=== PATIENT | male | born 1960 | race African-American/Black ===

== ENCOUNTER 2019-10-01 23:01 | Inpatient (IN) ==
[2019-10-01] MEDS ORDERED: ACETAMINOPHEN 500 MG TABLET PO STA (23:21)
[2019-10-01 23:44] LABS: Albumin 3.5 G/DL (3.4-5.0); Bilirubin,Total 0.8 MG/DL (0.2-1.0); Calcium 9.1 MG/DL (8.5-10.1); Osmolality,Calculated 277.2 MOS/KG (273-304); Total Protein 8.8 G/DL (6.4-8.3)
[2019-10-01 23:45] LABS: Basophils % 0.3 % (0.0-0.8); Eosinophils # 0.1 10*3/uL (0.0-0.87); Eosinophils % 0.6 % (0.00-10.9); Hemoglobin 12.9 GM/DL (14.0-18.0); Immature Granulocytes % 0.4 %; Immature Granulocytes Absolute 0.05 #; Lymphocytes # 0.9 10*3/uL (1.4-4.0); Lymphocytes % 8.1 % (21.2-54.2); Mean Corpuscular HGB Conc 32.3 GM/DL (32-36); Mean Corpuscular Volume 86.8 FL (87-102); Mean Platelet Volume 9.9 FL (9.6-12.0); Monocytes % 6.7 % (1.7-12.7); Neutrophils % 83.9 % (38.7-73.9); Platelet Count 245 T/CUMM (130-400); Red Blood Count 4.61 MC/CUMM (3.8-5.5); Red Cell Distribution Width 13.8 % (9.3-17.3); White Blood Count 11.6 T/CUMM (4-12)
[2019-10-01 23:53] LABS: Ferritin 642.2 ng/ml (26-388)
[2019-10-01 23:53] LABS: Apearance,Urine CLEAR (Clear); Bilirubin,Urine Negative (Negative); Blood, Urine Negative (Negative); Glucose,Urine (UA) Negative (Negative); Hyaline Casts,Urine 7 /LPF (0-3); Ketones,Urine Negative (Negative); Mucus,Urine Occasional /LPF (Occasional); Nitrite,Urine Negative (Negative); Protein,Urine Negative; RBC,Urine 1 /HPF (0-4); Sperm,Urine Occasional /HPF (Negative); Squamous Epithelial Cell,Urine Occasional /HPF (0-10); Urine Color Straw (Yellow); Urine Specific Gravity 1.008 (1.001-1.035); Urine Urobilinogen < 2.0 EU/DL (0.2-1.0); WBC,Urine 1 /HPF (0-6)
[2019-10-02] MEDS ORDERED: SODIUM CHLORIDE 0.9% 1,000 ML IV STA ×2 (00:28→02:56)
[2019-10-02] MEDS ORDERED: AZITHROMYCIN INJ 500 MG in SODIUM CHLORIDE 0.9% 250 ML IV STA (00:35)
[2019-10-02] MEDS ORDERED: GLUCAGON 1 MG VIAL IM PRN (02:33)
[2019-10-02] MEDS ORDERED: DEXTROSE 10% 250 ML BAG IV PRN (02:33)
[2019-10-02] MEDS ORDERED: ACETAMINOPHEN 325 MG TABLET PO PRN (02:33)
[2019-10-02] MEDS ORDERED: ONDANSETRON 4 MG/2 ML VIAL IV PRN (02:33)
[2019-10-02] MEDS: cefTRIAXone 1,000 MG in SYRINGE 1 EACH IV SCH (04:04)
[2019-10-02] MEDS: SODIUM CHLORIDE 0.9% 1,000 ML IV SCH ×4 (04:04→22:35)
[2019-10-02] MEDS: PANTOPRAZOLE 40 MG TABLET PO SCH (08:13)
[2019-10-02] MEDS: POTASSIUM CHLORIDE 20 MEQ TABLET PO PRN ×3 (08:13→18:40)
[2019-10-02] MEDS: AZITHROMYCIN 250 MG TABLET PO SCH (08:15)
[2019-10-02 11:50] LABS: Basophils % 0.4 % (0.0-0.8); Eosinophils # 0.2 10*3/uL (0.0-0.87); Eosinophils % 2.3 % (0.00-10.9); Hematocrit 33.3 VOL% (42.0-52.0); Hemoglobin 11.1 GM/DL (14.0-18.0); Immature Granulocytes % 0.3 %; Immature Granulocytes Absolute 0.02 #; Lymphocytes # 0.9 10*3/uL (1.4-4.0); Lymphocytes % 12.4 % (21.2-54.2); Mean Corpuscular HGB Conc 33.3 GM/DL (32-36); Mean Platelet Volume 9.5 FL (9.6-12.0); Monocytes % 10.8 % (1.7-12.7); Neutrophils % 73.8 % (38.7-73.9); Platelet Count 206 T/CUMM (130-400); Red Blood Count 3.87 MC/CUMM (3.8-5.5); White Blood Count 7.5 T/CUMM (4-12)
[2019-10-02 12:09] LABS: Ferritin 543.6 ng/ml (26-388)
[2019-10-02 12:10] LABS: Albumin 2.7 G/DL (3.4-5.0); Bilirubin,Total 1.2 MG/DL (0.2-1.0); Osmolality,Calculated 279.8 MOS/KG (273-304); Total Protein 7.1 G/DL (6.4-8.3)
[2019-10-02] MEDS: ATORVASTATIN 10 MG TABLET PO SCH (20:49)
[2019-10-02] MEDS: APIXABAN 5 MG TABLET PO SCH (20:49)
[2019-10-02] MEDS: FUROSEMIDE 40 MG TABLET PO SCH (20:49)
[2019-10-02] MEDS: lisinopriL 20 MG TABLET PO SCH (20:49)
[2019-10-03] MEDS ORDERED: AZITHROMYCIN INJ 500 MG in SODIUM CHLORIDE 0.9% 250 ML IV SCH (01:00)
[2019-10-03] MEDS: cefTRIAXone 1,000 MG in SYRINGE 1 EACH IV SCH (02:20)
[2019-10-03] MEDS: APIXABAN 5 MG TABLET PO SCH ×2 (08:07→20:14)
[2019-10-03] MEDS: AZITHROMYCIN 250 MG TABLET PO SCH (08:07)
[2019-10-03] MEDS: PANTOPRAZOLE 40 MG TABLET PO SCH (08:08)
[2019-10-03] MEDS: SODIUM CHLORIDE 0.9% 1,000 ML IV SCH ×2 (08:08→20:13)
[2019-10-03] MEDS: lisinopriL 20 MG TABLET PO SCH (20:14)
[2019-10-03] MEDS: FUROSEMIDE 40 MG TABLET PO SCH (20:14)
[2019-10-03] MEDS: ATORVASTATIN 10 MG TABLET PO SCH (20:14)
[2019-10-04] MEDS: cefTRIAXone 1,000 MG in SYRINGE 1 EACH IV SCH (04:41)
[2019-10-04] MEDS: SODIUM CHLORIDE 0.9% 1,000 ML IV SCH (04:59)
[2019-10-04] MEDS: APIXABAN 5 MG TABLET PO SCH (08:30)
[2019-10-04] MEDS: POTASSIUM CHLORIDE 20 MEQ TABLET PO PRN (08:30)
[2019-10-04] MEDS: PANTOPRAZOLE 40 MG TABLET PO SCH (08:30)
[2019-10-04] MEDS: AZITHROMYCIN 250 MG TABLET PO SCH (08:30)
[2019-10-04 10:49] LABS: Calcium 8.6 MG/DL (8.5-10.1); Osmolality,Calculated 281.7 MOS/KG (273-304)
[2019-10-04 11:43] VITALS: BP 115/67
== END 2019-10-04 14:00 | disposition home health service (06) | DRG 194 ==
LOC: N.ED 23:01 → N.EDINP 10-02 02:33 → N.2E 10-02 03:41
PROVIDERS: ADMIT Internal Medicine; ATTEND Internal Medicine

== ENCOUNTER 2020-06-15 06:20 | Inpatient (IN) ==
[2020-06-15] MEDS ORDERED: SIMETHICONE CHEW 125 MG TABLET PO PRN (09:31)
[2020-06-15] MEDS ORDERED: DOCUSATE SODIUM 100 MG CAPSULE PO PRN (09:31)
[2020-06-15] MEDS ORDERED: hydrALAZINE 20 MG/1 ML VIAL IV PRN (09:31)
[2020-06-15] MEDS ORDERED: DEXTROSE 50% 25 GM/50 ML VIAL IV PRN (09:31)
[2020-06-15] MEDS ORDERED: MORPHINE 4 MG/1 ML VIAL IV PRN (09:31)
[2020-06-15] MEDS ORDERED: ONDANSETRON 4 MG/2 ML VIAL IV PRN (09:31)
[2020-06-15] MEDS ORDERED: ACETAMINOPHEN 325 MG TABLET PO PRN (09:31)
[2020-06-15] MEDS ORDERED: ALUMINUM/MAGNES/SIMETH MAX STR 30 ML UDCUP PO PRN (09:31)
[2020-06-15] MEDS ORDERED: GLUCAGON 1 MG VIAL IM PRN (09:31)
[2020-06-15 11:21] LABS: Basophils # 0.1 10*3/uL (0.0-0.2); Basophils % 0.4 % (0.0-0.8); Eosinophils # 0.2 10*3/uL (0.0-0.87); Eosinophils % 1.3 % (0.00-10.9); Hematocrit 26.1 VOL% (42.0-52.0); Hemoglobin 8.3 GM/DL (14.0-18.0); Immature Granulocytes % 0.3 %; Immature Granulocytes Absolute 0.04 #; Lymphocytes # 2.1 10*3/uL (1.4-4.0); Lymphocytes % 17.7 % (21.2-54.2); Mean Corpuscular HGB Conc 31.8 GM/DL (32-36); Mean Corpuscular Volume 88.2 FL (87-102); Mean Platelet Volume 10.4 FL (9.6-12.0); Monocytes % 12.3 % (1.7-12.7); Platelet Count 287 T/CUMM (130-400); Red Blood Count 2.96 MC/CUMM (3.8-5.5); Red Cell Distribution Width 14.6 % (9.3-17.3); White Blood Count 11.9 T/CUMM (4-12)
[2020-06-15 11:27] LABS: CKMB % 2.2 %
[2020-06-15 11:38] LABS: Troponin I 3.27 NG/ML (0.00-0.045)
[2020-06-15 11:40] LABS: Albumin 3.1 G/DL (3.4-5.0); Bilirubin,Total 0.7 MG/DL (0.2-1.0); Calcium 9.1 MG/DL (8.5-10.1); Osmolality,Calculated 284.7 MOS/KG (273-304); Potassium 3.6 MMOL/L (3.5-5.1); Total Protein 8.3 G/DL (5.0-7.5)
[2020-06-15] MEDS ORDERED: SODIUM CHLORIDE 0.9% 1,000 ML IV PRN (12:34)
[2020-06-15 13:50] LABS: CKMB % 2.2 %
[2020-06-15 13:52] LABS: Troponin I 3.05 NG/ML (0.00-0.045)
[2020-06-15] MEDS: ASPIRIN EC 81 MG TABLET PO SCH (14:19)
[2020-06-15] MEDS: SODIUM CHLORIDE 0.9% 1,000 ML IV SCH (14:20)
[2020-06-15 15:50] LABS: % Iron Saturation 18.6 % (18-50); Ferritin 654.4 ng/ml (26-388)
[2020-06-15 15:53] LABS: Folate 10.1 NG/ML (5.38-24.0)
[2020-06-15] MEDS: carvediloL 3.125 MG TABLET PO SCH (16:25)
[2020-06-15 17:19] LABS: CKMB % 1.8 %
[2020-06-15 17:26] LABS: Troponin I 2.65 NG/ML (0.00-0.045)
[2020-06-15] MEDS: ATORVASTATIN 10 MG TABLET PO SCH (20:26)
[2020-06-15] MEDS: APIXABAN 5 MG TABLET PO SCH (20:26)
[2020-06-15 22:19] LABS: CKMB % 1.4 %; Troponin I 2.02 NG/ML (0.00-0.045)
[2020-06-16] MEDS: SODIUM CHLORIDE 0.9% 1,000 ML IV SCH ×2 (04:20→17:44)
[2020-06-16 06:41] LABS: Basophils % 0.3 % (0.0-0.8); Eosinophils # 0.2 10*3/uL (0.0-0.87); Eosinophils % 2.5 % (0.00-10.9); Hematocrit 37.7 VOL% (42.0-52.0); Immature Granulocytes % 0.4 %; Immature Granulocytes Absolute 0.03 #; Lymphocytes # 1.4 10*3/uL (1.4-4.0); Mean Corpuscular HGB Conc 32.6 GM/DL (32-36); Mean Corpuscular Volume 87.1 FL (87-102); Monocytes % 12.7 % (1.7-12.7); Neutrophils % 66.1 % (38.7-73.9); Red Blood Count 4.33 MC/CUMM (3.8-5.5); Red Cell Distribution Width 14.2 % (9.3-17.3)
[2020-06-16 06:44] LABS: Hemoglobin 12.3 GM/DL (14.0-18.0); White Blood Count 7.6 T/CUMM (4-12)
[2020-06-16 06:45] LABS: Platelet Count 200 T/CUMM (130-400)
[2020-06-16 06:46] LABS: Calcium 8.7 MG/DL (8.5-10.1); Osmolality,Calculated 282.7 MOS/KG (273-304); Potassium 3.6 MMOL/L (3.5-5.1); Risk Ratio 2.74; Total Protein 7.9 G/DL (5.0-7.5)
[2020-06-16] MEDS: ASPIRIN EC 81 MG TABLET PO SCH (08:25)
[2020-06-16] MEDS: carvediloL 3.125 MG TABLET PO SCH ×2 (08:26→17:44)
[2020-06-16] MEDS: PANTOPRAZOLE 40 MG TABLET PO SCH (08:26)
[2020-06-16] MEDS ORDERED: DEXTROSE 50% 25 GM/50 ML VIAL IV PRN (09:55)
[2020-06-16] MEDS: INSULIN LISPRO 100 UNIT/ML SUBCUT SCH ×3 (12:03→20:51)
[2020-06-16] MEDS: APIXABAN 5 MG TABLET PO SCH (20:51)
[2020-06-16] MEDS: ATORVASTATIN 10 MG TABLET PO SCH (20:51)
[2020-06-17 06:13] LABS: Basophils % 0.4 % (0.0-0.8); Eosinophils # 0.2 10*3/uL (0.0-0.87); Eosinophils % 2.4 % (0.00-10.9); Hematocrit 37.9 VOL% (42.0-52.0); Hemoglobin 12.4 GM/DL (14.0-18.0); Immature Granulocytes % 0.1 %; Immature Granulocytes Absolute 0.01 #; Lymphocytes # 1.4 10*3/uL (1.4-4.0); Lymphocytes % 18.1 % (21.2-54.2); Mean Corpuscular HGB Conc 32.7 GM/DL (32-36); Mean Corpuscular Volume 86.7 FL (87-102); Mean Platelet Volume 9.4 FL (9.6-12.0); Platelet Count 204 T/CUMM (130-400); Red Blood Count 4.37 MC/CUMM (3.8-5.5); Red Cell Distribution Width 14.1 % (9.3-17.3); White Blood Count 7.5 T/CUMM (4-12)
[2020-06-17 06:48] LABS: Calcium 8.7 MG/DL (8.5-10.1); Osmolality,Calculated 280.7 MOS/KG (273-304); Potassium 3.6 MMOL/L (3.5-5.1)
[2020-06-17] MEDS: SODIUM CHLORIDE 0.9% 1,000 ML IV SCH ×2 (06:48→21:38)
[2020-06-17] MEDS ORDERED: diphenhydrAMINE CAP 25 MG CAPSULE PO ONE (08:38)
[2020-06-17] MEDS ORDERED: MAGNESIUM SULF RIDER 2 GM in PREMIX 1 EACH IV PRN (08:38)
[2020-06-17] MEDS ORDERED: DIAZEPAM 5 MG TABLET PO ONE (08:38)
[2020-06-17] MEDS ORDERED: POTASSIUM CHLORIDE RIDER 10 MEQ in PREMIX 1 EACH IV PRN (08:38)
[2020-06-17] MEDS ORDERED: HEPARIN/NACL 0.9% 2 UNITS/ML 1,000 ML IV ONE (09:11)
[2020-06-17] MEDS: ASPIRIN EC 81 MG TABLET PO SCH (09:24)
[2020-06-17] MEDS: carvediloL 3.125 MG TABLET PO SCH ×2 (09:24→18:45)
[2020-06-17] MEDS: PANTOPRAZOLE 40 MG TABLET PO SCH (09:24)
[2020-06-17] MEDS: INSULIN LISPRO 100 UNIT/ML SUBCUT SCH ×4 (09:45→21:38)
[2020-06-17] MEDS ORDERED: MIDAZOLAM 2 MG/2 ML VIAL ONE (09:51)
[2020-06-17] MEDS ORDERED: fentaNYL 100 MCG/2 ML VIAL ONE (09:51)
[2020-06-17] MEDS ORDERED: LIDOCAINE 1%/EPI INJ 20 ML VIAL ONE (09:51)
[2020-06-17] MEDS ORDERED: ceFAZolin 1,000 MG VIAL ONE (10:12)
[2020-06-17] MEDS: APIXABAN 5 MG TABLET PO SCH (21:38)
[2020-06-17] MEDS: ATORVASTATIN 10 MG TABLET PO SCH (21:38)
[2020-06-18 05:47] LABS: Basophils % 0.2 % (0.0-0.8); Eosinophils # 0.1 10*3/uL (0.0-0.87); Eosinophils % 1.7 % (0.00-10.9); Hemoglobin 12.9 GM/DL (14.0-18.0); Immature Granulocytes % 0.4 %; Immature Granulocytes Absolute 0.03 #; Lymphocytes # 1.3 10*3/uL (1.4-4.0); Lymphocytes % 16.6 % (21.2-54.2); Mean Corpuscular HGB Conc 33.9 GM/DL (32-36); Mean Corpuscular Volume 84.1 FL (87-102); Mean Platelet Volume 10.2 FL (9.6-12.0); Monocytes % 13.1 % (1.7-12.7); Platelet Count 209 T/CUMM (130-400); Red Blood Count 4.52 MC/CUMM (3.8-5.5); Red Cell Distribution Width 13.9 % (9.3-17.3); White Blood Count 8.1 T/CUMM (4-12)
[2020-06-18 06:03] LABS: Calcium 8.6 MG/DL (8.5-10.1); Potassium 3.7 MMOL/L (3.5-5.1)
[2020-06-18] MEDS: APIXABAN 5 MG TABLET PO SCH ×2 (08:43→21:33)
[2020-06-18] MEDS: PANTOPRAZOLE 40 MG TABLET PO SCH (08:43)
[2020-06-18] MEDS: carvediloL 3.125 MG TABLET PO SCH ×2 (08:43→18:11)
[2020-06-18] MEDS: ISOSORBIDE MONONITRATE 30 MG TABLET PO SCH (08:44)
[2020-06-18] MEDS: ASPIRIN EC 81 MG TABLET PO SCH (08:44)
[2020-06-18] MEDS: INSULIN LISPRO 100 UNIT/ML SUBCUT SCH ×4 (08:46→22:18)
[2020-06-18] MEDS: SODIUM CHLORIDE 0.9% 1,000 ML IV SCH ×2 (11:04→22:46)
[2020-06-18] MEDS: ATORVASTATIN 10 MG TABLET PO SCH (21:33)
[2020-06-19] MEDS: ASPIRIN EC 81 MG TABLET PO SCH (08:20)
[2020-06-19] MEDS: PANTOPRAZOLE 40 MG TABLET PO SCH (08:20)
[2020-06-19] MEDS: APIXABAN 5 MG TABLET PO SCH (08:21)
[2020-06-19] MEDS: carvediloL 3.125 MG TABLET PO SCH (08:21)
[2020-06-19] MEDS: ISOSORBIDE MONONITRATE 30 MG TABLET PO SCH (08:22)
[2020-06-19] MEDS: INSULIN LISPRO 100 UNIT/ML SUBCUT SCH (08:30)
[2020-06-19 08:37] VITALS: BP 125/75
== END 2020-06-19 09:37 | disposition home health service (06) | DRG 281 ==
LOC: N.TELEN 08:09 → INTOOBSV 08:09 → SUATTDRO 13:40
PROVIDERS: ADMIT Internal Medicine; ATTEND Hospitalist
PROC: CLCCHCL (ICD-10-PCS; 2020-06-17 09:45)